=== PATIENT | male | born 1935 | race American Indian/Alaskan Native ===

== ENCOUNTER 2021-08-19 15:53 | Emergency (ER) | payer MEDICARE ==
--- NOTE | 2021-08-19 16:22 | Emergency Department Report ---
HPI - General Chief Complaint: Syncope Time Seen by Provider: 08/19/21 16:09 - HPI HPI: This is an 86-year-old -[place] male who presents to the emergency department via EMS from [facility], where the patient is a voluntary admission, for evaluation of possible syncope versus near syncope. Apparently, per EMS, the patient did not actually pass out. Supposedly the facility woke him from sleep and felt that he was confused. The patient does have his history of hypertension, COPD and dementia. 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 Patient has no physical complaints at this time. ED Past Medical Hx - Past Medical History Previous Medical History?: Yes Hx Hypertension: Yes Hx Psychiatric Treatment: Yes - Surgical History Additional Surgical History: oral surgery 2013, back surgery - Social History Smoking Status: Never Smoker Substance Use Type: None - Medications Home Medications: Home Medications Medication Instructions Recorded Confirmed Last Taken Type HYDROcodone/APAP 5-325 [Triangle 1 each PO Q6HR PRN #14 tablet 06/30/14 Unknown Rx 5/325] amLODIPine [Norvasc] 10 mg PO DAILY 06/30/14 06/30/14 Unknown History lisinopriL [Zestril] 40 mg PO QDAY 06/30/14 06/30/14 Unknown History ED Review of Systems ROS: Stated complaint: SYNCOPE Other details as noted in HPI Comment: All other systems reviewed and negative Constitutional: denies: chills, fever Eyes: denies: eye pain, vision change ENT: denies: ear pain, throat pain Respiratory: denies: cough, shortness of breath Cardiovascular: denies: chest pain, palpitations Gastrointestinal: denies: abdominal pain, vomiting Genitourinary: denies: dysuria, discharge Musculoskeletal: denies: back pain, arthralgia Skin: denies: rash, lesions Neurological: denies: headache, weakness Physical Exam - Physical Exam Vital Signs: Vital Signs 08/19/21 15:57 Temperature 98 F Pulse Rate 68 Respiratory 16 Rate Blood Pressure 116/73 [Right] O2 Sat by Pulse 98 Oximetry Physical Exam: GENERAL: The patient is well-developed well-nourished. HENT: Normocephalic. Atraumatic. Patient has moist mucous membranes. EYES: Extraocular motions are intact. No nystagmus. NECK: Supple. Trachea is midline. CHEST/LUNGS: Clear to auscultation. There is no respiratory distress noted. HEART/CARDIOVASCULAR: Regular. There is no tachycardia. There is no murmur. ABDOMEN: Abdomen is soft, nontender. Patient has normal bowel sounds. There is no abdominal distention. SKIN: Skin is warm and dry. NEURO: The patient is awake, alert, and cooperative. AAO x2, to person and place but not time. No motor or sensory deficits. Normal speech. No facial asymmetry. Cranial nerves II through XII grossly intact. MUSCULOSKELETAL: There is no tenderness or deformity. There is no limitation range of motion. ED Course Vital Signs 08/19/21 15:57 Temperature 98 F Pulse Rate 68 Respiratory 16 Rate Blood Pressure 116/73 [Right] O2 Sat by Pulse 98 Oximetry ED Medical Decision Making - Lab Data Result diagrams: 08/19/21 17:18 08/19/21 17:18 Lab Results 08/19/21 08/19/21 08/19/21 Range/Units 17:18 17:18 17:18 WBC 5.2 (4.5-11.0) K/mm3 RBC 4.68 (3.65-5.03) M/mm3 Hgb 14.0 (11.8-15.2) gm/dl Hct 43.3 (35.5-45.6) % MCV 92 (84-94) fl MCH 30 (28-32) pg MCHC 32 (32-34) % RDW 13.4 (13.2-15.2) % Plt Count 100 L (140-440) K/mm3 Lymph % (Auto) 9.2 L (13.4-35.0) % Leon % (Auto) 8.7 H (0.0-7.3) % Eos % (Auto) 1.5 (0.0-4.3) % Baso % (Auto) 0.9 (0.0-1.8) % Lymph # (Auto) 0.5 L (1.2-5.4) K/mm3 Leon # (Auto) 0.4 (0.0-0.8) K/mm3 Eos # (Auto) 0.1 (0.0-0.4) K/mm3 Baso # (Auto) 0.0 (0.0-0.1) K/mm3 Seg Neutrophils % 79.7 H (40.0-70.0) % Seg Neutrophils # 4.1 (1.8-7.7) K/mm3 Sodium 139 (137-145) mmol/L Potassium 3.9 (3.6-5.0) mmol/L Chloride 102.3 (98-107) mmol/L Carbon Dioxide 25 (22-30) mmol/L Anion Gap 16 mmol/L BUN 10 (9-20) mg/dL Creatinine 0.9 (0.8-1.3) mg/dL Estimated GFR > 60 ml/min BUN/Creatinine Ratio 11 % Glucose 118 H (75-100) mg/dL Calcium 9.3 (8.4-10.2) mg/dL Total Bilirubin 0.50 (0.1-1.2) mg/dL AST 22 (5-40) units/L ALT 23 (7-56) units/L Alkaline Phosphatase 75 (35-129) units/L Troponin T < 0.010 (0.00-0.029) ng/mL Total Protein 6.4 (6.3-8.2) g/dL Albumin 3.5 L (3.9-5) g/dL Albumin/Globulin Ratio 1.2 % TSH 1.040 (0.270-4.200) mlU/mL - EKG Data -: EKG Interpreted by Me EKG shows normal: sinus rhythm, axis (Left axis deviation), intervals (Prolonged MI interval), QRS complexes (Right bundle branch block, left anterior fascicular block), ST-T waves Rate: bradycardia (49 bpm) - EKG Data When compared to previous EKG there are: previous EKG unavailable Interpretation: other (Sinus bradycardia at 49 bpm, left axis deviation, prolonged MI interval, right bundle branch block, left anterior fascicular block. No ST elevation VA.) - Medical Decision Making This patient was sent in from [facility], where he is currently a voluntary admission, for evaluation after the patient was woken up from sleep and appeared to have some confusion. There was also report that the patient had a syncopal episode versus a near syncopal episode. I do not know what the actual scenario is. However, the patient has been awake and cooperative throughout his ED course. He is AAO x2, to person and place, but not time. However the patient has a history of dementia. He is calm, appropriate and very pleasant. There have been no behavioral disturbances. He is not exhibiting any signs of acute psychosis that would require a 1013, and the patient is currently at a psychiatric facility. He has no physical complaints at this time. On examination he does not have any focal, motor or sensory deficits and his cranial nerves are intact. Vital signs have been reassuring throughout his ED course. Labs have been mostly unremarkable including CBC, metabolic panel, negative troponin, normal thyroid function. Patient was seen ambulatory in the emergency department and both appears and feels stable. He has been reevaluated multiple times for more than 6 hours and has remained stable throughout his ED course. He appears safe for discharge back to his psychiatric facility. He has been instructed to follow-up with primary care as soon as he is done at [facility]. He will return to the emergency department with any concerns or acute distress. Critical Care Time: No Critical care attestation.: If time is entered above; I have spent that time in minutes in the direct care of this critically ill patient, excluding procedure time. ED Disposition Clinical Impression: Medical clearance for psychiatric admission Dementia Qualifiers: Dementia type: unspecified type Dementia behavioral disturbance: without behavioral disturbance Qualified Code(s): F03.90 - Unspecified dementia without behavioral disturbance Disposition: [address] [place] [address] HOSPITAL Is pt being admited?: No Condition: Stable Instructions: Medical Screening Exam, Dementia Additional Instructions: Please follow-up with a primary care physician as soon as you are done at [facility]. Return to the emergency department with any worsening of your symptoms, new or concerning symptoms not addressed during this current emergency department visit, or with any acute distress. Referrals: PCP, Your [Other] - 3-5 Days Time of Disposition: 20:19
[2021-08-19 17:59] LABS: Basophils % (Auto) 0.9 % (0.0-1.8); Eosinophils # (Auto) 0.1 K/mm3 (0.0-0.4); Eosinophils % (Auto) 1.5 % (0.0-4.3); Hematocrit 43.3 % (35.5-45.6); Lymphocytes # (Auto) 0.5 K/mm3 (1.2-5.4); Lymphocytes % (Auto) 9.2 % (13.4-35.0); Mean Corpuscular HGB Conc 32 % (32-34); Mean Corpuscular Volume 92 fl (84-94); Monocytes # (Auto) 0.4 K/mm3 (0.0-0.8); Monocytes % (Auto) 8.7 % (0.0-7.3); Platelet Count 100 K/mm3 (140-440); Red Blood Count 4.68 M/mm3 (3.65-5.03); Red Cell Distribution Width 13.4 % (13.2-15.2)
[2021-08-19 18:39] LABS: Alanine Aminotransferase 23 units/L (7-56); Albumin 3.5 g/dL (3.9-5); BUN/Creatinine Ratio 11; Blood Urea Nitrogen 10 mg/dL (9-20); Calcium 9.3 mg/dL (8.4-10.2); Hemolysis Index 13
[2021-08-20 03:25] VITALS: BP 114/75
--- NOTE | 2021-08-20 11:04 | Electrocardiograph Report ---
[facility] Test Date: 2021-08-19 Test Time: 16:21:16 Pat Name: KARIN GOYAL Department: Room: Gender: M Warehouse Assistant: ABIODUN : [id number] Requested By: CHU LEVIN Order Number: [id number] Reading MD: Cristhian Squires Measurements Intervals [place] Rate: 49 P: 46 AR: 282 QRS: -66 QRSD: 140 T: 37 QT: 456 QTc: 411 Interpretive Statements Bradycardia with irregular rate Prolonged AR interval RBBB and LAFB No previous ECG available for comparison Electronically Signed On 08-20-2021 11:04:12 EDT by Cristhian Squires
== END 2021-08-20 01:30 ==
LOC: ED 15:53
DX: F03.90 Unspecified dementia, unspecified severity, without behavioral disturbance, psychotic disturbance, mood disturbance, and anxiety (principal); Z13.30 Encounter for screening examination for mental health and behavioral disorders, unspecified; I10 Essential (primary) hypertension
CPT/HCPCS: 36415; 80053; 84443; 84484; 85025; 93005; 99284